=== PATIENT | female | born 1960 | race African-American/Black ===

== ENCOUNTER → 2025-05-24 | Outpatient (CLI) | payer MEDICARE, MEDICAID, SELFPAY ==
[2025-05-24 11:17] LABS: Alanine Aminotransferase 18 U/L (10-49); Albumin, Serum 4.2 gm/dL (3.4-4.8); Albumin/Globulin Ratio 1.6 (1.2-2.2); Alkaline Phosphatase 105 U/L (46-116); Anion Gap 8 (7-16); Aspartate Amino Transferase 20 U/L (0-34); BUN/Creatinine Ratio 8 Ratio (12-20); Bilirubin,Total 0.4 mg/dL (0.3-1.2); Blood Urea Nitrogen < 5 mg/dL (9-23); Calcium 9.5 mg/dL (8.3-10.6); Calcium (Corrected) 9.5 mg/dL (8.5-10.1); Carbon Dioxide 25.5 mMol/L (20.0-31.0); Cardiac Risk Estimate 4.3 RATIO (3.7-5.6); Chloride 104 mMol/L (98-107); Cholesterol 221 mg/dL (132-200); Creatinine (Component) 0.6 mg/dL (0.6-1.3); Globulin 2.7 gm/dL (2.3-3.5); Glucose 108 mg/dL (74-106); HDL Cholesterol 52 mg/dL (40-60); LDL Cholesterol,Calculated 119 mg/dL (0-130); Osmolality,Calculated 272 (275-295); Potassium 4.1 mMol/L (3.4-5.1); Sodium 137 mMol/L (136-145); Total Protein 6.9 gm/dL (5.7-8.2); Triglycerides 249 mg/dL (30-150); eGFR > 60 See Note
[2025-05-24 11:23] LABS: Vitamin B12 480 pg/mL (211-911); Vitamin D 25 Hydroxy Total 78.2 ng/mL (7.3-40.2)
== END | disposition home or self-care (01) ==
LOC: COPL 10:24
DX: E55.9 Vitamin D deficiency, unspecified (principal); E78.2 Mixed hyperlipidemia; Z79.899 Other long term (current) drug therapy
CPT/HCPCS: 36415; 80053; 80061; 82306; 82607

== ENCOUNTER 2025-07-02 05:42 | Emergency (ER) | payer MEDICARE, MEDICAID, SELFPAY ==
[2025-07-02 05:44] VITALS: PULSE 73; RESP 20; BMI 19.1
[2025-07-02 05:58] VITALS: BP 172/70; PULSE 86; RESP 19; TEMP 36.5; O2SAT 98
--- NOTE | 2025-07-02 06:02 | XR_ITS ---
EXAMINATION: AP chest single view TECHNIQUE: AP portable upright chest single view Date and time: July 02, 2025, 0610 hours INDICATIONS: Shortness of breath chest pain beginning today FINDINGS: Normal heart size The lungs are clear. Moderate osteopenia IMPRESSION: No active disease
--- NOTE | 2025-07-02 06:03 | XR_ITS ---
Examination: Abdomen sonogram, Limited Date and time of exam: July 02, 2025, 0641 hours INDICATIONS: Right upper abdominal pain nausea vomiting this morning Technique: Real-time swartz scale transabdominal sonographic images of the upper abdomen obtained. Findings: Negative for gallstones Gallbladder wall 0.14 cm although fluid is evident adjacent to the gallbladder Common bile duct 0.68 cm no stones Pancreas obscured by bowel gas Liver 13.6 cm no focal liver lesions Normal hepatopetal portal venous flow Patent IVC IMPRESSION: Negative for cholelithiasis Gallbladder wall measures 0.14 cm although there appears to be fluid adjacent to the gallbladder, clinical correlation advised Common bile duct 0.68 cm no common bile duct stones
--- NOTE | 2025-07-02 06:05 | PD.EDABDPN ---
ED Abdominal Pain RME/HPI General Chief Complaint: Abdominal Pain Stated complaint: ABD PAIN Time seen by provider: 07/02/25 05:50 Arrival date/time: 07/02/25 05:42 Limitations: no limitations RME / HPI RME / HPI narrative: DR. 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 Patient states she had upper abdominal pain which started yesterday and has vomited twice. This was nonbilious, nonbloody emesis. She states she had 1 episode of black melanotic stool today as well. No dysuria or urinary frequency. No flank pain. She states she has been eating normally and has had regular and normal bowel movements until today. She denies chest pain or dyspnea. No fevers, shakes, chills, sweats Related Data Home Medications ?Medication ?Instructions ?Recorded ?Confirmed timolol maleate 0.5 % eye drops 1 drp ophthalmic (eye) BID 04/15/21 02/05/22 memantine 5 mg tablet 5 mg PO QDAY 11/22/21 02/05/22 acetaminophen 650 mg 1 tab PO TID PRN Pain 02/05/22 02/05/22 tablet,extended release aspirin 81 mg tablet,delayed 1 tab PO QDAY 02/05/22 02/05/22 release hydroxyzine HCl 25 mg tablet 25 - 50 mg PO QPM 02/05/22 02/05/22 latanoprost 0.005 % eye drops See Rx Instructions .Route .COMPLEX 02/05/22 02/05/22 Previous Rx's ?Medication ?Instructions ?Recorded atorvastatin 80 mg tablet 80 mg PO QPM #30 tabs 04/17/21 clopidogrel 75 mg tablet (Plavix) 75 mg PO QDAY #30 tabs 04/17/21 lisinopril 40 mg tablet 40 mg PO QDAY #30 tabs 04/17/21 amoxicillin 500 mg-potassium 1 tab PO Q12H #14 tabs 02/07/22 clavulanate 125 mg tablet (Augmentin) Allergies Allergy/AdvReac Type Severity Reaction Status Date / Time No Known Allergies Allergy Verified 02/05/22 09:14 Review of Systems Review of Systems Systems Reviewed: All systems reviewed, normal except as documented Past Medical History Past Medical History NEUROLOGIC: Positive Cerebrovascular Accident CARDIAC: Positive Hypercholesterolemia ENT: Positive Glaucoma Surgical History SURGICAL: Positive Section Social History SMOKING STATUS: Former smoker SECOND HAND EXPOSURE: No ED Exam General Limitations: Present no limitations General appearance: Present alert and in no apparent distress Head Head exam: Present atraumatic, normocephalic and normal inspection Eye Eye exam: Present normal appearance, PERRL and EOMI ENT ENT exam: Present normal exam, normal oropharynx and mucous membranes moist Neck Neck exam: Present normal inspection, full ROM and trachea midline Chest Chest inspection: Present normal inspection and symmetric chest wall rise Respiratory Respiratory exam: Present normal lung sounds bilaterally Cardiovascular Cardiovascular exam: Present regular rate, normal rhythm and normal heart sounds Abdominal Exam Abdominal exam: Present soft, tenderness (moderate epigastric and right upper quadrant tenderness), normal bowel sounds and Rodriguez's sign (positive Rodriguez sign) Extremities Exam Extremities exam: Present normal inspection and full ROM Back Exam Back exam: Present normal inspection and full ROM Neurological Exam Neurological exam: Present alert, oriented X3 and CN II-XII intact Psychiatric Psychiatric exam: Present normal affect and normal mood Skin Skin exam: Present warm, dry, intact and normal color Course Quality Measures none Orders Category Date Time Status CT Screening NOW Care 07/02/25 06:03 Active Housekeeping Associate STAT Care 07/02/25 06:00 Active Continuous Pulse Oximetry STAT Care 07/02/25 06:00 Completed EKG (ED ONLY) *Do not use* NOW Care 07/02/25 06:00 Completed IV [Insert IV] NOW Care 07/02/25 05:57 Active Insert IV STAT Care 07/02/25 06:00 Completed NPO STAT Care 07/02/25 06:00 Active Orthostatic Vitals NOW Care 07/02/25 06:04 Active Transfer to another facility [Transfer/Discharge] Stat Discharge 07/02/25 07:30 Active EKG (ED Only) Stat Exams 07/02/25 06:00 Ordered US gall bladder Stat Exams 07/02/25 06:03 Completed XR chest 1V portable Stat Exams 07/02/25 06:02 Completed CBC Stat Lab 07/02/25 06:20 Completed Comprehensive Metabolic Panel Stat Lab 07/02/25 06:20 Completed INR [Prothrombin Time with INR] Stat Lab 07/02/25 06:20 Completed Lipase Stat Lab 07/02/25 06:20 Completed Magnesium Stat Lab 07/02/25 06:20 Completed PTT [Partial Thromboplastin Time] Stat Lab 07/02/25 06:20 Completed Type and Screen Stat Lab 07/02/25 06:20 Completed Urinalysis, C/S if Indicated Stat Lab 07/02/25 06:00 Ordered HYDROmorphone INJ [Dilaudid Inj] Med 07/02/25 06:15 Active 0.5 mg IVP Q30MIN PRN Ondansetron Inj [Zofran Inj] Med 07/02/25 06:02 Discontinued 4 mg IVP X1 ONE Sodium Chloride 0.9% 1000 ml [Ns] 1,000 ml Med 07/02/25 06:00 Discontinued IV 999 mls/hr Vital Signs Vital signs: Vital Signs Temperature 97.7 F 07/02/25 05:58 Pulse Rate 86 07/02/25 05:58 Respiratory Rate 19 07/02/25 05:58 Blood Pressure 172/70 H 07/02/25 05:58 Pulse Oximetry (%) 98 07/02/25 05:58 Abdominal Pain MDM MDM Narrative MDM Narrative:: I, Twyla Torres am scribing for and in the presence of Dr. Kwok. 65-year-old female with upper abdominal pain, vomiting, and black stools. Exam shows RUQ and epigastric tenderness with positive Rodriguez sign. Plan is to do an abdominal pain workup including right upper quadrant ultrasound and CT abdomen pelvis. Will treat the patient's pain and order fluids as well. On exam the patient has epigastric and right upper quadrant tenderness, moderate with positive Rodriguez sign. Lungs are clear, heart normal. Differential diagnoses include cholecystitis, upper GI bleed, and gastritis. 07:31 patient's EKG showed small ST elevation in V1 and V2. We made a stat called [facility] and I spoke with Dr Mock within minutes. He took a look at the EKG and excepted this patient in transfer. Paperwork is done and patient to go. Accepted to [facility], ED to ED. 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 How is presenting disease/condition affected by chronic disease/condition?: exacerbated by Evaluation data The following diagnostics were reviewed and interpreted by me:: lab results, radiology exam(s) and EKG tracing(s) (EKG showed small ST elevation in V1 and V2) Lab and/or radiology exams considered but not ordered:: none Interpretation Summary: See MDM narrative above. RADIOLOGY Procedure(s): US gall bladder Accession Number(s): [id number] cc: Hector Graf MD; NO PRIMARY/FAMILY,PHYSICIAN; Ashwin Kwok MD~ Examination: Abdomen sonogram, Limited Date and time of exam: July 02, 2025, 0641 hours INDICATIONS: Right upper abdominal pain nausea vomiting this morning Technique: Real-time swartz scale transabdominal sonographic images of the upper abdomen obtained. Findings: Negative for gallstones Gallbladder wall 0.14 cm although fluid is evident adjacent to the gallbladder Common bile duct 0.68 cm no stones Pancreas obscured by bowel gas Liver 13.6 cm no focal liver lesions Normal hepatopetal portal venous flow Patent IVC IMPRESSION: Negative for cholelithiasis Gallbladder wall measures 0.14 cm although there appears to be fluid adjacent to the gallbladder, clinical correlation advised Common bile duct 0.68 cm no common bile duct stones Dictated By: Hector Graf MD Procedure(s): XR chest 1V portable Accession Number(s): [id number] cc: Hector Graf MD; Ashwin Kwok MD~ EXAMINATION: AP chest single view TECHNIQUE: AP portable upright chest single view Date and time: July 02, 2025, 0610 hours INDICATIONS: Shortness of breath chest pain beginning today FINDINGS: Normal heart size The lungs are clear. Moderate osteopenia IMPRESSION: No active disease Dictated By: Hector Graf MD Medications / Prescriptions Medications or Prescriptions considered but not ordered:: none Medication administrations:: Medication Administration History Hydromorphone HCl (Hydromorphone Inj 2 Mg/Ml Vial) 0.5 mg IVP Q30MIN PRN PRN Reason: PAIN Last Admin: 07/02/25 06:17 Dose: 0.5 mg Documented By: GONZÁLEZ Discontinued Medications Sodium Chloride (Ns) 1,000 mls @ 999 mls/hr IV .Q1H1M ONE Stop: 07/02/25 07:00 Last Admin: 07/02/25 06:18 Dose: 999 mls/hr Documented By: GONZÁLEZ Ondansetron HCl (Ondansetron Inj 2 Mg/Ml Inj 2 Ml) 4 mg IVP X1 ONE; Protocol Stop: 07/02/25 06:03 Last Admin: 07/02/25 06:17 Dose: 4 mg Documented By: GONZÁLEZ see above Consultations Consultation(s) initiated? (list below): Yes Consultation #1 (Physician, Specialty, Details): We made a stat called [facility] and I spoke with Dr Mock within minutes. He took a look at the EKG and excepted this patient in transfer. Paperwork is done and patient to go. Accepted to [facility], ED to ED. Time: 07:31 Diagnosis Differential diagnosis abdominal pain: other (cholecystitis, upper GI bleed, and gastritis) Most likely diagnosis given after review of the tests above:: Acute DC Admission Indicated Admission indicated?: not indicated Explain why admission is indicated or not indicated:: Patient needs higher level of care and will be transferred. Admission Request Was there a request for admission?: No Disposition Plan Disposition Plan: Transfer Critical Care Time Critical Care Time Critical Care Time: Yes Total Critical Care Time (min.): 45 Attestation: The high probability of sudden, clinically significant deterioration in the patient?s condition required the highest level of my preparedness to intervene urgently. The services I provided to this patient were to treat and/or prevent clinically significant deterioration. Services included the following: chart data review, reviewing nursing notes and/or old charts, documentation time, dietitian consultant collaboration regarding findings and treatment options, medication orders and management, direct patient care, vital sign assessments and ordering, interpreting and reviewing diagnostic studies and lab tests. Aggregate critical care time includes only time during which I was engaged in work directly related to the patient?s care, as described above, whether at bedside or elsewhere in the Emergency Department. It did not include time spent performing other reported procedures or the services of residents, students, nurses or physician assistants. Discharge Plan Plan Patient Disposition: [facility] Pt Being Transferred to: [facility] Service Needed for Transfer: Cardiology Prescriptions/Referrals Prescriptions/Med Rec: No Action timolol maleate 0.5 % drops 1 drp OPHTHALMIC (EYE) BID Patient Comments: INSTILL 1 DROP INTO RIGHT EYE TWICE A DAY Rx Instructions: INSTILL 1 DROP IN RIGHT EYE TWICE A DAY clopidogrel [Plavix] 75 mg Tablet 75 mg PO QDAY Qty: 30 0RF atorvastatin 80 mg tablet 80 mg PO QPM Qty: 30 0RF lisinopril 40 mg tablet 40 mg PO QDAY Qty: 30 0RF memantine 5 mg tablet 5 mg PO QDAY Patient Comments: TAKE 1 TABLET BY MOUTH EVERY DAY latanoprost 0.005 % drops See Rx Instructions .ROUTE .COMPLEX Patient Comments: INSTILL 1 DROP INTO RIGHT EYE EVERY DAY Rx Instructions: INSTILL 1 DROP INTO RIGHT EYE EVERY DAY aspirin 81 mg tablet,delayed release (DR/EC) 1 tab PO QDAY acetaminophen 650 mg tablet extended release 1 tab PO TID PRN (Reason: Pain) Patient Comments: TAKE 1 TABLET BY MOUTH 3 TIMES A DAY NEEDED FOR PAIN hydroxyzine HCl 25 mg tablet 25 - 50 mg PO QPM Patient Comments: TAKE 1-2 TABLET BY MOUTH EVERY NIGHT amoxicillin-pot clavulanate [Augmentin] 500-125 mg tablet 1 tab PO Q12H Qty: 14 0RF Problem List Clinical Impression: Acute DC Patient/Caregiver Discharge Instructions Print Language: Bahamian Stand Alone Forms: [employer] Info., Patient Portal Info Letter
[2025-07-02] MEDS: HYDROmorphone INJ 2 MG/ML VIAL 0.5 MG IVP (06:17)
[2025-07-02] MEDS: ONDANSETRON INJ 2 MG/ML INJ 2 ML 4 MG IVP (06:17)
[2025-07-02] MEDS: SODIUM CHLORIDE 0.9% 1000 ML 1,000 ML 999 ML IV (06:18)
[2025-07-02 06:36] VITALS: PULSE 81
[2025-07-02 06:38] VITALS: BP 137/65; BP 158/65; BP 174/57; PULSE 72; PULSE 76; PULSE 77
[2025-07-02 07:09] LABS: INR 1.0 (0.9-1.3); Partial Thromboplastin Time 21.8 Seconds (22.0-36.0); Prothrombin Time 10.5 Seconds (9.0-12.2)
[2025-07-02 07:18] LABS: Alanine Aminotransferase 350 U/L (10-49); Albumin, Serum 4.9 gm/dL (3.4-4.8); Albumin/Globulin Ratio 1.8 (1.2-2.2); Alkaline Phosphatase 367 U/L (46-116); Anion Gap 12 (7-16); Aspartate Amino Transferase 755 U/L (0-34); BUN/Creatinine Ratio 9 Ratio (12-20); Bilirubin,Total 2.3 mg/dL (0.3-1.2); Blood Urea Nitrogen 6 mg/dL (9-23); Calcium 9.7 mg/dL (8.3-10.6); Calcium (Corrected) 9.7 mg/dL (8.5-10.1); Carbon Dioxide 26.7 mMol/L (20.0-31.0); Chloride 98 mMol/L (98-107); Creatinine (Component) 0.7 mg/dL (0.6-1.3); Estimated Creatinine Clearance 66.9 mL/min (>60); Globulin 2.7 gm/dL (2.3-3.5); Glucose 202 mg/dL (74-106); Lipase 1282 U/L (12-53); Magnesium 2.0 mg/dL (1.6-2.6); Osmolality,Calculated 277 (275-295); Potassium 3.2 mMol/L (3.4-5.1); Sodium 137 mMol/L (136-145); Total Protein 7.6 gm/dL (5.7-8.2); eGFR > 60 See Note
--- NOTE | 2025-07-02 07:30 | PC.NURSE ---
report called to didier gonzalez via telephone from [facility] christie
--- NOTE | 2025-07-02 07:42 | PC.CC ---
Addendum entered by Karo Decker RN 07/02/25 08:47: 0840: received call [facility] VALENCIA Ramsay requesting lab results be faxed to [facility] at [phone]. Lab results faxed. Original Note: 0714: transfer set up for stat. transfer packet with CDx1 created and given to SHANTEL Ramsay. 0713: received call from [employer] with accepting information. He will enter info on the ED tracker. He stated VALENCIA Mccoy started transfer. 0710: received call from Dr. Kwok to transfer for cardio for NSTEMI.
[2025-07-02 08:12] LABS: Basophils # (Auto) 0.0 Thou/mm3 (0.0-0.2); Basophils % (Auto) 0 % (0-2.5); Eosinophils # (Auto) 0.0 Thou/mm3 (0.0-0.5); Eosinophils % (Auto) 0 % (0-10); Hematocrit 43.7 % (36.0-46.0); Hemoglobin 15.1 g/dL (12.0-16.0); Immature Granulocytes Auto 0.10 Thou/mm3 (0.00-0.00); Lymphocytes # (Auto) 0.5 Thou/mm3 (1.0-4.8); Lymphocytes % (Auto) 3 % (10-50); Mean Corpuscular HGB Conc 34.6 g/dl (31.0-37.0); Mean Corpuscular Hemoglobin 32.0 pg (25.0-35.0); Mean Corpuscular Volume 93 fL (80-100); Monocytes # (Auto) 0.6 Thou/mm3 (0.0-0.8); Monocytes % (Auto) 4 % (0-12); Neutrophils # (Auto) 14.0 Thou/mm3 (1.8-7.7); Neutrophils % (Auto) 92 % (37-80); Nucleated Red Blood Cell # 0.00 Thou/mm3 (0.00-0.00); Nucleated Red Blood Cell % 0 /100 WBC (0); Platelet Count 209 Thou/mm3 (140-440); RDW Standard Deviation 42.0 fL (36.4-46.3); Red Blood Count 4.72 Miln/mm3 (4.00-5.20); White Blood Count 15.2 Thou/mm3 (3.6-11.0)
== END 2025-07-02 07:38 | disposition short-term general hospital (02) ==
PROVIDERS: Emergency Provider Emergency Medicine
DX: I21.9 Acute myocardial infarction, unspecified (principal); I10 Essential (primary) hypertension; G81.90 Hemiplegia, unspecified affecting unspecified side; E78.00 Pure hypercholesterolemia, unspecified
CPT/HCPCS: 36415; 71045; 76705; 80053; 81001; 83690; 83735; 85025; 85610; 85730; 86850; 86900; 86901; 93005; 96374; 96375; 99284; J1171; J2405; J7030